=== PATIENT | female | born 1975 | race African-American/Black ===

== ENCOUNTER 2016-10-10 03:22 | Emergency (ER) | payer SELFPAY ==
[~2016-10-10] VITALS: Ht 162.6 cm; Wt 131.0 kg
[2016-10-10] MEDS ORDERED: KETOROLAC 60MG/2ML VIAL IM ONE (06:30)
[2016-10-10 08:02] VITALS: BP 128/79
== END 2016-10-10 08:04 | disposition home or self-care (01) ==
LOC: ER 03:34
DX: S93.401A Sprain of unspecified ligament of right ankle, initial encounter (principal); Z88.0 Allergy status to penicillin; V43.52XA Car driver injured in collision with other type car in traffic accident, initial encounter; Y92.488 Other paved roadways as the place of occurrence of the external cause
CPT/HCPCS: 71010; 73610; 93005; 96372; 99284; J1885; Z7610